=== PATIENT | female | born 1940 | race Caucasian/White ===

== ENCOUNTER 2020-06-20 19:27 | Inpatient (IN) | payer MEDICARE, OTHER ==
[~2020-06-20] VITALS: Ht 160 cm; Wt 88.9 kg
[~2020-06-20 19:27] MED LIST: ACETAZOLAMIDE500 M1 IVP; ALLERGY RELIEF10 M3 PO; ALLOPURINOL100 MG PO; ALLOPURINOL300 MG PO; AMIODARONE HCL200 MG PO; AMLODIPINE BES2.5 MG PO; ANORO ELLIPTA1 EACH INH; ASPIRIN EC325 MG PO; ASPIRIN EC81 MG PO; AUGMENTIN 875-1 EACH PO; BACTRIM DS TAB1 EACH PO; BROVANA15 MCG/2 M NEB; BUDESONIDE0.5 MG/2 M NEB; BUMETANIDE1 MG PO; BUMEX 1MG TABLET1 MG GT; BUMEX 1MG TABLET1 MG PO; CEFUROXIME500 MG PO; CETIRIZINE HCL10 MG PO; CHLORTHALIDONE25 MG PO; DALIRESP 500500 MCG GT; DIAMOX 250 MG250 MG PO; DOXYCYCLINE HY100 MG PO; ECOTRIN81 MG PO; ELIQUIS 2.5 MG2.5 MG PO; ELIQUIS 5 MG TAB5 MG PO; FERROUS SULFAT325 MG PO; FLONASE 0.05% N16 GM; HYDRALAZINE HCL25 MG PO; HYDROCHLOROTHIA25 MG PO; HYDROCODON-ACE1 EAC4 PO; HYGROTON TAB 2525 MG PO; IBUPROFEN600 MG PO; IPRAT-ALBUT 0.5-3 ML INH; KEFLEX CAP 500500 MG PO; LASIX 40 MG TAB40 MG PO; LASIX40 MG PO; LEVEMIR100 UNIT/1 SC; LEVOFLOXACIN500 MG PO; LISINOPRIL20 MG PO; LOPRESSOR 25 MG25 MG PO; LOPRESSOR 50 MG50 MG PO; LOPRESSOR100 MG PO; METOLAZONE10 MG PO; METOPROLOL TART25 MG PO; NORVASC2.5 MG PO; NOVOLOG 10100 UNITS1 SC; NOVOLOG100 UNIT/1 SQ; OMEPRAZOLE20 MG PO; PREDNISONE10 MG PO; PROAIR DIGIHAL90 MCG INH; SYNTHROID50 MCG PO; VENTOLIN HFA 66.7 GM INH; VIBRAMYCIN 100100 MG PO; ZESTRIL 40 MG T40 MG GT; ZESTRIL40 MG PO; ZOCOR20 MG PO; ZYLOPRIM 100 M100 MG PO; ZYLOPRIM300 MG PO
[2020-06-20 20:28] LABS: HEMOGLOBIN 7.7 gm/dl (12.3-15.3); RED BLOOD COUNT 2.73 M/UL (4.00-5.10); WHITE BLOOD COUNT 6.5 K/UL (4.5-11.0)
[2020-06-20] MEDS ORDERED: BUMETANIDE1 MG PO ×2 (23:47→23:49)
[2020-06-21 05:24] LABS: WHITE BLOOD COUNT 6.1 K/UL (4.5-11.0)
[2020-06-21 05:30] LABS: RED BLOOD COUNT 2.4 M/UL (4.00-5.10)
[2020-06-21 05:31] LABS: HEMOGLOBIN 6.8 gm/dl (12.3-15.3)
[2020-06-22 03:58] LABS: HEMOGLOBIN 8.7 gm/dl (12.3-15.3); WHITE BLOOD COUNT 5.8 K/UL (4.5-11.0)
[2020-06-22 04:01] LABS: RED BLOOD COUNT 3.11 M/UL (4.00-5.10)
[2020-06-23 02:35] LABS: HEMOGLOBIN 8.6 gm/dl (12.3-15.3); WHITE BLOOD COUNT 5.3 K/UL (4.5-11.0)
[2020-06-24 06:53] LABS: HEMOGLOBIN 8.2 gm/dl (12.3-15.3); RED BLOOD COUNT 2.93 M/UL (4.00-5.10); WHITE BLOOD COUNT 5.9 K/UL (4.5-11.0)
[2020-06-26] MEDS ORDERED: BUMETANIDE1 MG PO (10:29)
== END 2020-06-26 16:42 | disposition home or self-care (01) | DRG 682 ==
LOC: ER1 19:27 → MED SURG 4 21:25 → CDU 21:25 → MED SURG 4 06-21 23:54
PROVIDERS: Emergency Medicine; Internal Medicine; Internal Medicine Nephrology; ADMIT Internal Medicine
PROC: B24BZZZ Ultrasonography of Heart with Aorta (ICD-10-PCS; principal; 2020-06-21)
PROC: 30233N1 Transfusion of Nonautologous Red Blood Cells into Peripheral Vein, Percutaneous Approach (ICD-10-PCS; 2020-06-21)
DX: N17.9 Acute kidney failure, unspecified (principal); I50.33 Acute on chronic diastolic (congestive) heart failure; I13.0 Hypertensive heart and chronic kidney disease with heart failure and stage 1 through stage 4 chronic kidney disease, or unspecified chronic kidney disease; J96.11 Chronic respiratory failure with hypoxia; L03.116 Cellulitis of left lower limb; I48.20 Chronic atrial fibrillation, unspecified; E87.3 Alkalosis; N18.4 Chronic kidney disease, stage 4 (severe); Z20.822 Contact with and (suspected) exposure to COVID-19; E11.22 Type 2 diabetes mellitus with diabetic chronic kidney disease; E87.5 Hyperkalemia; J44.9 Chronic obstructive pulmonary disease, unspecified; M19.90 Unspecified osteoarthritis, unspecified site; E78.5 Hyperlipidemia, unspecified; K21.9 Gastro-esophageal reflux disease without esophagitis; D47.2 Monoclonal gammopathy; N28.89 Other specified disorders of kidney and ureter; D64.9 Anemia, unspecified; Z96.641 Presence of right artificial hip joint; G89.29 Other chronic pain; M25.569 Pain in unspecified knee; Z99.81 Dependence on supplemental oxygen; Z87.442 Personal history of urinary calculi; Z90.49 Acquired absence of other specified parts of digestive tract; Z91.040 Latex allergy status; Z82.49 Family history of ischemic heart disease and other diseases of the circulatory system; Z87.891 Personal history of nicotine dependence; Z79.82 Long term (current) use of aspirin; Z79.4 Long term (current) use of insulin
CPT/HCPCS: ECHO; 36415; 36430; 36600; 71045; 80048; 80053; 80202; 81001; 82550; 82553; 82570; 82607; 82728; 82746; 82803; 82962; 83540; 83550; 83605; 83690; 83880; 84156; 84484; 85025; 86850; 86900; 86901; 86920; 87040; 87070; 87205; 89050; 93306; 93971; 94640; 94664; 94760; 96365; 96367; 96368; 96375; 99285; J0696; J1120; J1940; J3370; J7030; J7050; J7070; P9016; P9047; U0002